=== PATIENT | male | born 1965 | race Caucasian/White ===

== ENCOUNTER 2025-03-27 07:34 | Day surgery (SDC) | payer OTHER ==
--- NOTE | 2025-03-21 14:51 | RAD REPORT ---
EXAM: Chest Pa And Lat (2 Views) HISTORY: 60 years Male Pre-op pending urolift/Spaceoar gel COMPARISON: None. FINDINGS: LUNGS/PLEURA: The lungs are clear. No pleural effusions or pneumothorax. No pulmonary edema. CARDIAC/MEDIASTINUM: The cardiac silhouette is within normal limits. UPPER ABDOMEN: No significant abnormality. BONES: No acute abnormality. LINES/TUBES/OTHER: N/A IMPRESSION: No evidence of acute cardiopulmonary disease.
[2025-03-21 15:24] LABS: Absolute Lymphocytes (CBC) 2.4 K/uL (0.7-4.9); Absolute Monocytes 0.8 K/uL (0.1-1.3); Absolute Neutrophil 3.8 K/uL (1.8-8.0); Basophils % 0.3 % (0-1.3); Eosinophils % 0.5 % (0-4.4); Hematocrit 40.7 % (39.6-49.0); Hemoglobin 13.4 g/dL (13.6-17.9); Lymphocytes % 34.1 % (15.3-44.8); MCH 30.3 pg (27.0-35.0); MCHC 33.1 g/dL (32.0-36.0); MCV 91.5 fL (80-100); MPV 8.5 fL (7.6-11.3); Monocytes % 11.4 % (3.3-12.3); Neutrophils % 53.7 % (41.7-73.7); Nucleated Red Blood Cells % 0.2 % (0-0); Platelets 317 thou/uL (152-406); RBC Red Blood Cell Count 4.44 M/uL (4.33-5.43); Red Cell Distribution Width 13.4 % (12.1-15.2)
[2025-03-21 15:29] LABS: PT Prothrombin Time 12.5 SECONDS (10-13.0); PTT, Activated Partial Thromb 33.5 SECONDS (27.2-37.4); Protime INR 1.1
[2025-03-21 15:30] LABS: Specific Gravity > 1.030 (1.005-1.030); Sqamous Epithelial <5 /HPF (None Seen); Urine Bacteria None Seen /HPF (<20); Urine Bilirubin NEGATIVE (Negative); Urine Blood Negative (Negative); Urine Clarity Clear (Clear); Urine Color Yellow (Yellow); Urine Culture Reflex Order REFLEXED; Urine Glucose 4+ (Over) (Negative); Urine Ketones NEGATIVE (Negative); Urine Microscopic Reflex YN ORDER UMIC; Urine Mucus Slight /HPF (None Seen); Urine Nitrite NEGATIVE (Negative); Urine Protein TRACE (Negative); Urine RBC <5 /HPF (None Seen); Urine Urobilinogen Normal (Normal); Urine WBC <5 /HPF (<5); Urine pH 5.5 (5.0-7.0)
[2025-03-21 15:39] LABS: Anion Gap 8.6 mEq/L (5.0-15.0); Potassium 3.6 mEq/L (3.5-5.1)
[2025-03-27] MEDS: NA CHLORIDE 0.9% 1,000 ML ONE (08:00)
[2025-03-27] MEDS: INSULIN REGULAR (HUMAN) 100 UNIT/ML ONE (08:49)
[2025-03-27] MEDS ORDERED: propofoL 200 MG/20 ML VIAL IV ONE (10:37)
[2025-03-27] MEDS ORDERED: MIDAZOLAM HCL 2 MG/2 ML INJ ONE (10:37)
[2025-03-27] MEDS ORDERED: KETOROLAC 30 MG/ML INJ ONE (10:37)
[2025-03-27] MEDS ORDERED: ONDANSETRON 4 MG/2 ML VIAL ONE (10:37)
[2025-03-27] MEDS ORDERED: dexAMETHasone 10 MG/ML VIAL ONE (10:37)
[2025-03-27] MEDS ORDERED: FENTANYL CITR 100 MCG/2 ML ONE (10:37)
[2025-03-27] MEDS: CEFAZOLIN SODIUM 2 GM/VIAL ONE (10:52)
[2025-03-27 12:06] VITALS: TEMP 97.2
[2025-03-27 12:38] VITALS: BP 128/81; O2SAT 96
--- NOTE | 2025-03-27 13:42 | P.OP ---
Date of Service: 03/27/25 Preoperative diagnoses: Unfavorable intermediate risk prostate cancer BPH with LUTS OAB LUTS Postoperative diagnoses: Unfavorable intermediate risk prostate cancer BPH with LUTS OAB LUTS Principal procedures: Transrectal ultrasound-guided insertion of 2 fiducial markers Transrectal ultrasound-guided insertion of SpaceOAR gel Indication for procedure: 60-year-old gentleman with known low-grade prostate cancer that progressed to unfavorable intermediate risk with a PSA above 10. He had elected to proceed with radiation therapy to his prostate and had been treated in the past with Orgovyx. There was a delay in initiation of his radiation treatment. His PCP, Dr. Garcia, ordered additional blood work preoperatively as follows: 03/14/2025 PSA 14.9 with 3.9% free, hemoglobin A1c 12.8, testosterone 359, TSH 1.57, estradiol 40.7, cholesterol 148, triglycerides 107, LDL 87, VLDL 20, HDL 41 File he was originally scheduled for UroLift in addition to SpaceOAR, because he denied any degree of significant obstructive LUTS, specifically no intermittency, sense of incomplete emptying, weak stream or needing to push or strain to void, and since his symptoms were purely irritative in nature, without further urodynamics testing, I could not guarantee the significance of performing a UroLift to manage obstruction due to BPH, even though some obstruction anatomically was seen. As a result, he elected to forego proceeding with the UroLift today and we will simply plan fiducial markers and SpaceOAR gel insertion. Procedure note: The patient was consented in the preoperative holding area before being transferred to the operative suite where general anesthesia was induced. He was placed in the high lithotomy position, after Ancef 2 g IV antimicrobial prophylaxis was provided. Pneumoboots were provided for DVT prophylaxis. The transrectal ultrasound probe was placed via his anus into his rectum with ease and visualized in sagittal as well as axial dimensions. Betadine was used to prep the perineal region. The case has begun using fiducial markers placed laterally within the peripheral zone anteriorly of the mid gland of the prostate bilaterally. 2 fiducial markers were placed using ultrasound guidance into those locations. I then turned my attention to insertion of the SpaceOAR injection needle which was primed with normal saline. I was able to navigate the needle through the perineum in the midline over the rectal hump and into the mid base portion of the prostate. This was confirmed in axial as well as sagittal dimensions. I then aspirated and received no blood or succus before injecting a small bolus of saline which did separate within the prerectal fat plane accordingly. It was symmetric across the midline; so I the saline syringe from the needle and connected the SpaceOAR injection components which had been primed. I then injected the SpaceOAR gel under continuous slow pressure and observed the gel to distribute bilaterally across the mid zones of the prostate from apex to base. I then remove the needle and surveyed the area ultrasonographically. While nice distribution of the SpaceOAR gel was present along the entirety of the patient's right side from the apex to the base, on the left side, the gel did not distribute to the most lateral aspect in the apical aspect of the prostate, where there was less separation that in other areas where the gel distributed more evenly. As a result, the patient was taken out of the lithotomy position, awakened from general anesthesia, transferred to a stretcher, and then transferred to the recovery room in good condition. Complications: None Discharge disposition: Follow-up should be established about 6 months after he completes radiation therapy in about the next 3 months. Sooner follow-up may be established if his LUTS progressively worsen despite the radiation therapy and it goes beyond that manageable by the radiation oncologist.
== END 2025-03-27 13:50 | disposition home or self-care (01) ==
LOC: OR 07:34
PROVIDERS: ATTEND Urology
PROC: 0VH43YZ Insertion of Other Device into Prostate and Seminal Vesicles, Percutaneous Approach (ICD-10-PCS; principal; 2025-03-27 09:45)
DX: N40.1 Benign prostatic hyperplasia with lower urinary tract symptoms (principal); C61 Malignant neoplasm of prostate; N32.81 Overactive bladder
CPT/HCPCS: 87088; 85025; 81001; 87086; 80048; 36415; 85610; 82947 ×3; 85730; 71046; 55874; J2704; J2250; J3010; J1100; J2405; J1815; J7030